=== PATIENT | female | born 1990 ===

== ENCOUNTER → 2019-12-21 08:36 | Outpatient (CLI) | payer BC, SELFPAY ==
--- NOTE | ~2019-12-21 | CT_ITS ---
EXAMINATION: CT facial bones wo con DATE: 12/21/2019 09:01 INDICATION: Lump on left side of nasal bone TECHNIQUE: Computed tomography (CT) of the facial bones and maxillofacial region was performed withou t intravenous contrast. Automated exposure control and iterative reconstruction technique were employ ed. Exam dose: 282.31 mGy-cm total exam DLP. COMPARISON: None. FINDINGS: There is a small bony protrusion in the midline of the nasal bones beneath the nasion. No f racture is detected. No bone destruction is noted. The remainder of the facial bones including the fr ontozygomatic sutures, zygomatic arches, orbital rims and meza are intact. No significant abnormal facial soft tissue abnormality is noted. The paranasal sinuses and mastoid air cells are normally developed and aerated. IMPRESSION: No significant abnormality Reviewed, dictated and finalized at [facility]. Reviewed, dictated and finalized at [facility]. [facility] IMPRESSION: No significant abnormality
== END ==
PROVIDERS: Visit Provider Otolaryngology
DX: J34.89 Other specified disorders of nose and nasal sinuses (principal)
CPT/HCPCS: 70486